=== PATIENT | female | born 2000 | race Caucasian/White ===

== ENCOUNTER 2021-10-19 12:02 | Emergency (ER) | payer MEDICAID ==
[~2021-10-19] VITALS: Ht 149.9 cm; Wt 50.3 kg
[2021-10-19 12:24] VITALS: BP 99/66
--- NOTE | 2021-10-19 13:27 | NUR ---
PT AMBULATED TO BED 02.
[2021-10-19] MEDS ORDERED: NAPR-54 PO (13:58)
[2021-10-19] MEDS ORDERED: KETOROLAC 30 MG/ML VIAL IM ONE (14:00)
[2021-10-19 14:48] VITALS: BP 116/79
--- NOTE | 2021-10-19 14:49 | NUR ---
Patient discharged with v/s stable. Written and verbal after care instructions given and explained. Patient verbalized understanding. Ambulatory with steady gait. All questions addressed prior to discharge. Advised to follow up with PMD.
== END 2021-10-19 14:49 | disposition home or self-care (01) ==
LOC: MED 12:02
DX: R07.89 Other chest pain (principal); Z79.1 Long term (current) use of non-steroidal anti-inflammatories (NSAID)
CPT/HCPCS: 93005; 96372; 99283; J1885

== ENCOUNTER 2023-03-12 23:22 | Emergency (ER) | payer MEDICAID, OTHER ==
[~2023-03-12] VITALS: Ht 149.9 cm; Wt 51.7 kg
[~2023-03-12 23:22] MED LIST: NAPR-54 PO
[2023-03-12 23:25] VITALS: BP 135/75; PULSE 74; RESP 15; TEMP 97; O2SAT 100
[2023-03-13] MEDS ORDERED: ACETAMINOPHEN EXTRA STRENGTH 500 MG TAB PO ONE (01:30)
[2023-03-13] MEDS ORDERED: ACET-10509 PO (02:54)
== END 2023-03-13 03:14 | disposition home or self-care (01) ==
LOC: MED 23:22
DX: M25.561 Pain in right knee (principal); K80.20 Calculus of gallbladder without cholecystitis without obstruction; E22.1 Hyperprolactinemia; Z79.899 Other long term (current) drug therapy
CPT/HCPCS: 73562; 99283

== ENCOUNTER 2023-12-05 12:03 | Emergency (ER) | payer OTHER ==
[~2023-12-05] VITALS: Ht 152.4 cm; Wt 57.7 kg
[~2023-12-05 12:03] MED LIST changes: +ACET-10509 PO; +NAPR-337 PO; -NAPR-54 PO
[2023-12-05 12:05] VITALS: BP 109/77; PULSE 76; RESP 17; TEMP 98.5; O2SAT 99
[2023-12-05 12:36] LABS: APPEARANCE,URINE HAZY (CLEAR); BILIRUBIN,URINE NEGATIVE (NEGATIVE); BLOOD, URINE NEGATIVE (NEGATIVE); COLOR,URINE YELLOW (YELLOW); LEUKOCYTE ESTERASE ,URINE 1+ (NEGATIVE); NITRITE, URINE POSITIVE (NEGATIVE); PROTEIN,URINE NEGATIVE (NEGATIVE); UGLUCOSE NEGATIVE (NEGATIVE)
[2023-12-05 13:27] LABS: BACTERIA,URINE 2+ /HPF (None Seen); RBC,URINE 0-5 /HPF (0-5); SQUAMOUS EPITHELIAL CELL,UR 20-50 /LPF (0-3 (FEW))
[2023-12-05] MEDS ORDERED: CIPR500T4 PO (13:48)
[2023-12-05] MEDS ORDERED: IBUP-2213 PO (13:48)
[2023-12-05 14:13] VITALS: BP 109/77; PULSE 76; RESP 17; TEMP 98.5; O2SAT 99
== END 2023-12-05 14:13 | disposition home or self-care (01) ==
LOC: MED 12:03
DX: N39.0 Urinary tract infection, site not specified (principal); Z79.1 Long term (current) use of non-steroidal anti-inflammatories (NSAID)
CPT/HCPCS: 81001; 81025; 82948; 87086; 99283